=== PATIENT | female | born 1955 | race Caucasian/White ===

== ENCOUNTER 2017-12-05 17:22 | Emergency (ER) | payer OTHER ==
[~2017-12-05] VITALS: Ht 162.6 cm; Wt 65.8 kg
[2017-12-05 18:15] LABS: Basophils # (auto) 0 uL; Eosinophils # (auto) 0 uL; Eosinophils % (auto) 0.5 % (0.0-7.0); Hemoglobin 12.3 g/dL (12.2-16.2); Lymphocytes # (auto) 0.9 uL; Mean Corpuscular Hgb Conc. 32.8 g/dL (32.0-36.0); Monocytes # (auto) 0.3 uL; White Blood Cell 6.7 10^3/uL (4.4-10.8)
[2017-12-05 18:17] LABS: Basophils % (auto) 0.1 % (0.0-2.0); Hematocrit 37.6 % (36.0-46.0); Lymphocytes % (auto) 13.2 % (10.0-50.0); Mean Corpuscular Hemoglobin 25.5 pg (28.0-32.0); Mean Corpuscular Volume 77.9 fL (80.0-100.0); Monocytes % (auto) 4.4 % (0.0-12.0); Neutrophils # (auto) 5.5 uL; Neutrophils % (auto) 81.8 % (37.0-80.0); Nucleated Red Blood Cells % 0.1 %; Platelet Count (auto) 325 10^3/uL (140-450); Red Blood Cells 4.83 10^6/uL (4.0-5.20); Red Cell Distribution Width 15.5 % (11.8-14.3)
[2017-12-05 18:37] LABS: Alanine Aminotransferase 16 U/L (13-56); Alkaline Phosphatase 120 U/L (45-117); Anion Gap 6 (5-15); Aspartate Aminotransferase 10 U/L (15-37); Bilirubin, Total 0.4 mg/dL (0.2-1.0); Blood Urea Nitrogen 12 mg/dL (7-18); Calcium 8.5 mg/dL (8.5-10.1); Carbon Dioxide 26 mmol/L (21-32); Chloride 97 mmol/L (98-107); GFR African American 122 mL/min; GFR Non-African American 101 mL/min; Glucose 125 mg/dL (74-106); Magnesium 2.1 mg/dL (1.6-2.6); Potassium 3.9 mmol/L (3.5-5.1); Sodium 129 mmol/L (136-145); Total Protein 7.8 g/dL (6.4-8.2)
[2017-12-05 18:46] VITALS: BP 132/83
[2017-12-05] MEDS ORDERED: SODIUM CHLORIDE 0.9% 1,000 ML IV ONE (19:00)
== END 2017-12-05 20:04 | disposition home or self-care (01) ==
LOC: ER 17:27
DX: R00.2 Palpitations (principal); R11.2 Nausea with vomiting, unspecified; F17.210 Nicotine dependence, cigarettes, uncomplicated; Z90.710 Acquired absence of both cervix and uterus
CPT/HCPCS: 36415; 80053; 83735; 84484; 85025; 93005; 94761; 96360

== ENCOUNTER → 2022-06-16 | Outpatient (CLI) | payer MEDICARE, BC | END | disposition home or self-care (01) | LOC: LAB 08:39 | PROVIDERS: ATTEND Internal Medicine | DX: D50.9 Iron deficiency anemia, unspecified (principal) | CPT/HCPCS: 82270 ==

== ENCOUNTER → 2023-07-19 | Outpatient (CLI) | payer MEDICARE, BC ==
[~2023-07-19] VITALS: Ht 157.5 cm; Wt 52.2 kg
[~2023-07-19] MED LIST: AMLO1TAB21 PO; DULO60CA41 PO; FER325T PO; GABA-1250 PO; MORP30TA PO; OXYC-963 PO; SENN-58 PO
[2023-07-19 11:37] LABS: Basophils # (auto) 0 10 ^3/uL (0-0.2); Basophils % (auto) 0.1 % (0.0-2.0); Eosinophils # (auto) 0 10 ^3/uL (0-0.8); Eosinophils % (auto) 1.5 % (0.0-7.0); Hematocrit 37.8 % (36.0-46.0); Hemoglobin 12.5 g/dL (12.2-16.2); Lymphocytes # (auto) 0.7 10 ^3/uL (0.4-5.4); Lymphocytes % (auto) 23.8 % (10.0-50.0); Mean Corpuscular Hemoglobin 28.8 pg (28.0-32.0); Mean Corpuscular Volume 87.2 fL (80.0-100.0); Monocytes # (auto) 0.2 10 ^3/uL (0-1.3); Monocytes % (auto) 7.3 % (0.0-12.0); Neutrophils % (auto) 67.3 % (37.0-80.0); Red Blood Cells 4.33 10^6/uL (4.0-5.20); Red Cell Distribution Width 14.1 % (11.8-14.3); White Blood Cell 2.9 10^3/uL (4.4-10.8)
[2023-07-19 11:47] LABS: INR 1.01 (0.9-1.15); Partial Thromboplastin Time 26.8 SEC (24.5-34.5); Prothrombin Time 10.7 sec (9.3-11.8)
[2023-07-19 13:02] LABS: Alanine Aminotransferase 15 U/L (7-40); Alkaline Phosphatase 141 U/L (46-116); Anion Gap 5 (5-15); Blood Urea Nitrogen 13 mg/dL (9-23); Calcium 9.4 mg/dL (8.5-10.1); Carbon Dioxide 32 mmol/L (20-30); Chloride 103 mmol/L (98-107); Glucose 95 mg/dL (74-106); Potassium 4.1 mmol/L (3.5-5.1); Sodium 140 mmol/L (136-145)
[2023-07-19 13:04] LABS: Aspartate Aminotransferase 16 U/L (13-40); Bilirubin, Total 0.2 mg/dL (0.2-1.0); Total Protein 6.2 g/dL (5.7-8.2)
== END | disposition home or self-care (01) ==
LOC: LAB 11:19 → EDSTATUS 07-21 09:45
PROVIDERS: ATTEND Internal Medicine Gastroenterology
DX: R12 Heartburn (principal); F41.9 Anxiety disorder, unspecified; Z86.2 Personal history of diseases of the blood and blood-forming organs and certain disorders involving the immune mechanism; Z85.53 Personal history of malignant neoplasm of renal pelvis; Z98.890 Other specified postprocedural states
CPT/HCPCS: 36415; 80053; 85025; 85610; 85730

== ENCOUNTER 2023-09-27 12:14 | Emergency (ER) | payer MEDICARE, OTHER ==
[~2023-09-27] VITALS: Ht 152.4 cm; Wt 51.0 kg
[2023-09-27 16:45] VITALS: BP 114/81; PULSE 118; RESP 16; TEMP 98.5; O2SAT 96
[2023-09-27 18:35] LABS: Basophils # (auto) 0 10 ^3/uL (0-0.2); Basophils % (auto) 0.1 % (0.0-2.0); Eosinophils # (auto) 0 10 ^3/uL (0-0.8); Eosinophils % (auto) 0.3 % (0.0-7.0); Hematocrit 38.7 % (36.0-46.0); Hemoglobin 13.2 g/dL (12.2-16.2); Lymphocytes # (auto) 0.6 10 ^3/uL (0.4-5.4); Mean Corpuscular Hemoglobin 29.1 pg (28.0-32.0); Mean Corpuscular Hgb Conc. 34.1 g/dL (32.0-36.0); Mean Corpuscular Volume 85.5 fL (80.0-100.0); Monocytes # (auto) 0.5 10 ^3/uL (0-1.3); Monocytes % (auto) 8.9 % (0.0-12.0); Neutrophils % (auto) 78.7 % (37.0-80.0); Red Blood Cells 4.53 10^6/uL (4.0-5.20); Red Cell Distribution Width 13.8 % (11.8-14.3); White Blood Cell 5.1 10^3/uL (4.4-10.8)
[2023-09-27] MEDS ORDERED: DexAMETHasone SOD PHOS 10MG/1ML VIAL INJ IV ONE (18:45)
[2023-09-27] MEDS ORDERED: CLINDAMYCIN 900MG IV 50 ML IV ONE (18:45)
[2023-09-27 18:52] LABS: Alanine Aminotransferase 27 U/L (7-40); Albumin 4.7 g/dL (3.2-4.8); Alkaline Phosphatase 341 U/L (46-116); Anion Gap 6 (5-15); Aspartate Aminotransferase 19 U/L (13-40); BUN/Creatinine Ratio 10.6 (10.0-20.0); Blood Urea Nitrogen 9 mg/dL (9-23); Calcium 9.9 mg/dL (8.7-10.4); Carbon Dioxide 32 mmol/L (20-30); Chloride 97 mmol/L (98-107); Glucose 160 mg/dL (74-106); Potassium 3.6 mmol/L (3.5-5.1); Sodium 135 mmol/L (136-145)
[2023-09-27 18:53] LABS: Bilirubin, Total 0.3 mg/dL (0.2-1.0); Total Protein 7.6 g/dL (5.7-8.2)
[2023-09-27] MEDS ORDERED: SODIUM CHLORIDE 0.9% 1,000 ML IV ONE (19:45)
[2023-09-27] MEDS ORDERED: ACET-1304 PO (19:57)
[2023-09-27] MEDS ORDERED: CLIN-203 PO (19:57)
[2023-09-27] MEDS ORDERED: IOHEXOL 300 MG/ML 100ML BOTTLE IJ ONE (21:18)
== END 2023-09-27 21:47 | disposition left against medical advice (07) ==
LOC: ER 12:14
DX: K12.2 Cellulitis and abscess of mouth (principal); I10 Essential (primary) hypertension; F17.210 Nicotine dependence, cigarettes, uncomplicated; Z85.528 Personal history of other malignant neoplasm of kidney; Z79.899 Other long term (current) drug therapy
CPT/HCPCS: 36415; 80053; 83605; 85025

== ENCOUNTER → 2024-01-22 | Outpatient (CLI) | payer MEDICARE, OTHER ==
[~2024-01-22] MED LIST changes: +ACET-1304 PO; +CLIN-203 PO
[2024-01-22 08:06] LABS: Basophils # (auto) 0 10 ^3/uL (0-0.2); Basophils % (auto) 0.3 % (0.0-2.0); Eosinophils # (auto) 0 10 ^3/uL (0-0.8); Eosinophils % (auto) 1.9 % (0.0-7.0); Hematocrit 37.9 % (36.0-46.0); Hemoglobin 12.7 g/dL (12.2-16.2); Lymphocytes # (auto) 0.7 10 ^3/uL (0.4-5.4); Lymphocytes % (auto) 30.8 % (10.0-50.0); Mean Corpuscular Hemoglobin 28.5 pg (28.0-32.0); Mean Corpuscular Hgb Conc. 33.5 g/dL (32.0-36.0); Mean Corpuscular Volume 85.1 fL (80.0-100.0); Monocytes # (auto) 0.2 10 ^3/uL (0-1.3); Monocytes % (auto) 7.3 % (0.0-12.0); Neutrophils # (auto) 1.4 10 ^3/uL (1.6-8.6); Neutrophils % (auto) 59.7 % (37.0-80.0); Nucleated Red Blood Cells % 0.2 %; Platelet Count (auto) 143 10^3/uL (140-450); Red Blood Cells 4.45 10^6/uL (4.0-5.20); Red Cell Distribution Width 14.1 % (11.8-14.3); White Blood Cell 2.4 10^3/uL (4.4-10.8)
[2024-01-22 08:34] LABS: Alanine Aminotransferase 25 U/L (7-40); Albumin 4.2 g/dL (3.2-4.8); Alkaline Phosphatase 148 U/L (46-116); Amylase 294 U/L (30-118); Anion Gap 3 (5-15); Aspartate Aminotransferase 19 U/L (13-40); BUN/Creatinine Ratio 12.8 (10.0-20.0); Blood Urea Nitrogen 11 mg/dL (9-23); Calcium 9.6 mg/dL (8.7-10.4); Carbon Dioxide 32 mmol/L (20-31); Chloride 103 mmol/L (98-107); Cholesterol 187 mg/dL (< 200); Glucose 97 mg/dL (74-106); HDL Cholesterol 53 mg/dL (40-59); LDL Cholesterol 108 mg/dL (< 100); Potassium 4.4 mmol/L (3.5-5.1); Sodium 138 mmol/L (136-145); Triglycerides 174 mg/dL (< 150)
[2024-01-22 08:35] LABS: Bilirubin, Total 0.5 mg/dL (0.2-1.0); Erythrocyte Sedimentation Rate 2 mm/hr (0-20); Total Protein 6.7 g/dL (5.7-8.2)
[2024-01-22 09:04] LABS: Lipase 33 U/L (12-53)
== END | disposition home or self-care (01) ==
LOC: LAB 07:12
PROVIDERS: ATTEND Internal Medicine
DX: K21.9 Gastro-esophageal reflux disease without esophagitis (principal); R74.8 Abnormal levels of other serum enzymes; Z79.899 Other long term (current) drug therapy
CPT/HCPCS: 36415; 80053; 80061; 82150; 83690; 84439; 84443; 85025; 85652

== ENCOUNTER 2024-03-23 07:38 | Day surgery (SDC) | payer MEDICARE, OTHER ==
[2024-03-21 14:43] LABS: Basophils # (auto) 0 10 ^3/uL (0-0.2); Basophils % (auto) 0.2 % (0.0-2.0); Eosinophils # (auto) 0.1 10 ^3/uL (0-0.8); Eosinophils % (auto) 1.9 % (0.0-7.0); Hemoglobin 12.6 g/dL (12.2-16.2); Lymphocytes % (auto) 32.1 % (10.0-50.0); Mean Corpuscular Hemoglobin 28.4 pg (28.0-32.0); Mean Corpuscular Hgb Conc. 33.2 g/dL (32.0-36.0); Mean Corpuscular Volume 85.6 fL (80.0-100.0); Monocytes # (auto) 0.2 10 ^3/uL (0-1.3); Monocytes % (auto) 7.4 % (0.0-12.0); Neutrophils # (auto) 1.7 10 ^3/uL (1.6-8.6); Neutrophils % (auto) 58.4 % (37.0-80.0); Platelet Count (auto) 166 10^3/uL (140-450); Red Blood Cells 4.44 10^6/uL (4.0-5.20); Red Cell Distribution Width 14.5 % (11.8-14.3)
[2024-03-21 14:57] LABS: INR 0.98 (0.9-1.15); Partial Thromboplastin Time 26.6 SEC (24.5-34.5); Prothrombin Time 10.4 sec (9.3-11.8)
[2024-03-21 15:17] LABS: Albumin 4.6 g/dL (3.2-4.8); Anion Gap 4 (5-15); Aspartate Aminotransferase 16 U/L (13-40); BUN/Creatinine Ratio 12.8 (10.0-20.0); Bilirubin, Total 0.3 mg/dL (0.2-1.0); Blood Urea Nitrogen 11 mg/dL (9-23); Calcium 9.9 mg/dL (8.7-10.4); Chloride 99 mmol/L (98-107); Potassium 3.8 mmol/L (3.5-5.1); Total Protein 7.2 g/dL (5.7-8.2)
[2024-03-21 15:18] LABS: Alanine Aminotransferase < 9 U/L (7-40); Alkaline Phosphatase 134 U/L (46-116); Carbon Dioxide 33 mmol/L (20-31); Glucose 117 mg/dL (74-106); Sodium 136 mmol/L (136-145)
[2024-03-22 08:06] LABS: Urine Bacteria None Seen /hpf (None Seen); Urine WBC None Seen /hpf (0 - 5)
[2024-03-22 08:12] LABS: Urine Blood Negative /uL (Negative); Urine Clarity Clear (Clear); Urine Color Light-Yellow (Yellow); Urine Protein, UAD Negative (Negative); Urine Specific Gravity 1.009 (1.001-1.035); Urine Squamous Epithelial Cell None Seen /hpf (<5); Urine Urobilinogen Normal (Negative); Urine pH 6.5 (5.0-9.0)
[~2024-03-23] VITALS: Ht 157.5 cm; Wt 56.7 kg
[~2024-03-23 07:38] MED LIST changes: -ACET-1304 PO; -AMLO1TAB21 PO; -CLIN-203 PO; -FER325T PO; -OXYC-963 PO; +OXYC325T14 PO; -SENN-58 PO
[2024-03-23] MEDS ORDERED: ONDANSETRON HCL 4 MG/2 ML VIAL ONE (08:53)
[2024-03-23] MEDS ORDERED: PROPOFOL 10 MG/ML 20 ML IV ONE (08:53)
[2024-03-23 09:18] VITALS: PULSE 73; RESP 11; TEMP 97.7; O2SAT 100
[2024-03-23 09:48] VITALS: BP 125/82; PULSE 73; RESP 12; O2SAT 96
--- NOTE | 2024-03-24 13:10 | DVHNC2 ---
Procedure - PROCEDURE DATE: March 23, 2024 SURGEON: Sabas Barragan MD REFERRING PROVIDER: Dr. Santa PROCEDURE PERFORMED: 1. Esophagogastroduodenoscopy with biopsy under anesthesia PRE-PROCEDURE DIAGNOSIS: 1. Chronic GERD refractory to treatment POSTPROCEDURE DIAGNOSIS: 1. 1. Mild erosive esophagitis 2. 7 cm hiatal hernia 3. Mild gastritis biopsies taken 4. Normal duodenum INDICATIONS FOR PROCEDURE: The patient is a 68-year-old female with chronic GERD refractory to treatment ANESTHESIOLOGY: Per Dr. Rodriguez DETAILS OF THE PROCEDURE: Informed consent was obtained after risks, benefits, and alternatives, were discussed at length with the patient. Consent was given for the procedures as well as for the anesthesia. The patient was placed in left lateral decubitus position. An Olympus endoscope was inserted into the oropharynx and advanced into the esophagus, then into the stomach, then into the duodenal bulb in the duodenum. The scope was then withdrawn and mucosa carefully evaluated. Retained secretions were washed off or suctioned. The duodenal bulb and duodenum were normal. The scope was then withdrawn. The stomach showed mild gastritis, biopsies were taken of the body and antrum and sent for pathology. Retroflexed view showed a large hiatal hernia. The scope was then withdrawn. The Z-line showed mild erosive esophagitis LA grade A. The hernia extended from 30-37 cm. There were no lesions within the hernia. The scope was then withdrawn in the procedure completed. The patient tolerated the procedure well. IMPRESSION: 1. Large hiatal hernia extending from 30-37 cm 2. Mild erosive esophagitis 3. Mild erosive gastritis RECOMMENDATIONS: 1. Follow up in GI clinic for procedure and pathology results 2. Anti-reflux precautions, weight loss, elevate the head of bed, avoid alcohol, chocolate, spicy food, tobacco, citrus, large meals before bedtime, greasy food. 3. Consider referral to surgery for fundoplication 4. Patient should be on a proton pump inhibitor daily to twice daily 30 minutes before meals I would like to thank Dr. Santa for this referral. SABAS BARRAGAN MD Mar 24, 2024 13:10
== END 2024-03-23 10:00 | disposition home or self-care (01) ==
LOC: GI 07:38
PROVIDERS: ATTEND Specialist
DX: K29.50 Unspecified chronic gastritis without bleeding (principal); K21.00 Gastro-esophageal reflux disease with esophagitis, without bleeding; I10 Essential (primary) hypertension; E03.9 Hypothyroidism, unspecified
CPT/HCPCS: 36415; 43239; 80053; 81001; 85025; 85610; 85730; 88305; 88312; 88342; J2405; J2704

== ENCOUNTER → 2024-07-16 | Outpatient (CLI) | payer MEDICARE, OTHER ==
[2024-07-16 08:25] LABS: Alanine Aminotransferase 13 U/L (7-40); Albumin 4.4 g/dL (3.2-4.8); Anion Gap 9 (5-15); Aspartate Aminotransferase 16 U/L (13-40); BUN/Creatinine Ratio 15.6 (10.0-20.0); Blood Urea Nitrogen 14 mg/dL (9-23); Calcium 9.8 mg/dL (8.7-10.4); Chloride 98 mmol/L (98-107); Potassium 4.1 mmol/L (3.5-5.1); Sodium 138 mmol/L (136-145); Total Protein 6.9 g/dL (5.7-8.2)
[2024-07-16 08:26] LABS: Bilirubin, Total 0.4 mg/dL (0.2-1.0)
[2024-07-16 08:27] LABS: Basophils # (auto) 0 10 ^3/uL (0-0.2); Basophils % (auto) 0.3 % (0.0-2.0); Eosinophils # (auto) 0.1 10 ^3/uL (0-0.8); Eosinophils % (auto) 2.3 % (0.0-7.0); Hematocrit 38.2 % (36.0-46.0); Hemoglobin 12.6 g/dL (12.2-16.2); Lymphocytes # (auto) 0.5 10 ^3/uL (0.4-5.4); Lymphocytes % (auto) 24.1 % (10.0-50.0); Mean Corpuscular Hemoglobin 27.9 pg (28.0-32.0); Mean Corpuscular Hgb Conc. 33.1 g/dL (32.0-36.0); Mean Corpuscular Volume 84.3 fL (80.0-100.0); Monocytes # (auto) 0.2 10 ^3/uL (0-1.3); Neutrophils # (auto) 1.5 10 ^3/uL (1.6-8.6); Neutrophils % (auto) 66.3 % (37.0-80.0); Nucleated Red Blood Cells % 0.2 %; Platelet Count (auto) 128 10^3/uL (140-450); Red Blood Cells 4.53 10^6/uL (4.0-5.20); Red Cell Distribution Width 14.7 % (11.8-14.3); White Blood Cell 2.2 10^3/uL (4.4-10.8)
[2024-07-16 08:28] LABS: Thyroid Stimulating Hormone 3.19 uIU/mL (0.55-4.78)
[2024-07-16 08:31] LABS: Alkaline Phosphatase 118 U/L (46-116); Carbon Dioxide 31 mmol/L (20-31); Glucose 158 mg/dL (74-106)
[2024-07-16 08:53] LABS: Free T4 (Free Thyroxine) 1.08 ng/dL (0.89-1.76)
== END | disposition home or self-care (01) ==
LOC: LAB 07:36
PROVIDERS: ATTEND Internal Medicine
DX: D70.2 Other drug-induced agranulocytosis (principal); Z79.899 Other long term (current) drug therapy
CPT/HCPCS: 36415; 80053; 82607; 83615; 84439; 84443; 85025